=== PATIENT | male | born 1970 | race Caucasian/White ===

== ENCOUNTER 2017-12-30 07:23 | Day surgery (SDC) | payer OTHER ==
[2017-12-30] MEDS ORDERED: MIDAZOLAM 2 MG/2 ML VIAL IVP PRN (07:30)
[2017-12-30] MEDS ORDERED: fentaNYL 100 MCG/2 ML INJ IVP PRN (07:30)
[2017-12-30] MEDS ORDERED: FLUMAZENIL 0.5 MG/5 ML MDV IVP PRN (07:30)
[2017-12-30] MEDS ORDERED: MEPERIDINE 25 MG/ML SYR IVP PRN (07:30)
[2017-12-30] MEDS ORDERED: HEPARIN 10,000 UNIT/10 ML MDV (1,000 UNIT/ML) IVP PRN (07:30)
[2017-12-30] MEDS ORDERED: ceFAZolin 2 GM/DEXTROSE 100 ML IV ONE (07:30)
[2017-12-30] MEDS ORDERED: PROTAMINE SULFATE 50 MG/5 ML VIAL IVP PRN (07:30)
[2017-12-30] MEDS ORDERED: NS 1,000 ML IV ONE (07:30)
[2017-12-30] MEDS ORDERED: ALTEPLASE 2 MG VIAL IVP PRN (07:30)
[2017-12-30] MEDS ORDERED: GLUCAGON HCL 1 MG VIAL IVP PRN (07:30)
[2017-12-30] MEDS ORDERED: NALOXONE HCL 0.4 MG/ML INJ IVP PRN (07:30)
[2017-12-30] MEDS ORDERED: ONDANSETRON 4 MG/2 ML VIAL IVP ONE (07:30)
[2017-12-30] MEDS ORDERED: SODIUM TETRADECYL SULFATE 3% 2 ML VIAL IV ONE ×2 (08:00→10:35)
[2017-12-30] MEDS ORDERED: LIDO/EPI 1% **for epidural** 30 ML SDV ONE (08:00)
--- NOTE | 2017-12-30 09:18 | PDPROPOC ---
Sedation Plan of Care Sedation Plan of Care: vital signs stable, mental status noted, patient educated of risks, benefits, alternatives, patient can tolerate sedation ASA Classification: ASA 1 Planned drugs: fentanyl, midazolam Mallampati Score: Class 1 Mallampati Reference Image: Patient passed 3-3-2 rule?: No
--- NOTE | 2017-12-30 09:20 | PDGENHP ---
History & Physical Chief Complaint: BILATERAL VARICOSITIES History of Present Illness: PAIN AND SWELLING Pertinent Past, Social, Family History: N/A Relevant Physical Exam: ROPEY VARICOSE VEINS LLE. SWELLING BILATERAL ANKLE. Cardiorespiratory Assessment: RRR, CTA
[2017-12-30] MEDS ORDERED: fentaNYL 100 MCG/2 ML INJ ONE (10:18)
[2017-12-30] MEDS ORDERED: MIDAZOLAM 2 MG/2 ML VIAL ONE (10:18)
[2017-12-30] MEDS ORDERED: IBUPROFEN 200 MG TAB PO ONE (11:29)
[2017-12-30] MEDS ORDERED: ONDANSETRON DISINTEGRATING 4 MG TAB PO PRN (11:29)
[2017-12-30] MEDS ORDERED: ONDANSETRON 4 MG/2 ML VIAL IVP PRN (11:29)
[2017-12-30] MEDS ORDERED: HYDROCODONE/APAP 5/325 TAB PO PRN (11:29)
[2017-12-30] MEDS ORDERED: NS 1,000 ML IV SCH (11:30)
--- NOTE | 2017-12-30 11:30 | PDRADPN ---
Radiology Procedure Note Date of Procedure: 12/30/17 Radiologist: Maggie Espitia Anesthesia: IV Sedation Pre-op Diagnosis: BILATERAL VARICOSE VEINS Post-op Diagnosis: SAME Indication: PAIN AND SWELLING Procedure: BILATERAL LASER, SCLEROTHERAPY, LT PHELBECTOMY. Inf/Abcess present in the surg proc area at time of surgery?: No
[2017-12-30 16:04] VITALS: BP 106/67
== END 2017-12-30 16:06 | disposition home or self-care (01) ==
LOC: FIMAGING 07:23
PROVIDERS: ATTEND Radiology Diagnostic Radiology
DX: I83.813 Varicose veins of bilateral lower extremities with pain (principal); I83.893 Varicose veins of bilateral lower extremities with other complications; R22.43 Localized swelling, mass and lump, lower limb, bilateral
CPT/HCPCS: J0690; J2250; J2310; J3010

== ENCOUNTER → 2018-02-15 | Outpatient (CLI) | payer OTHER | LOC: FIMAGING 15:57 | PROVIDERS: ATTEND Radiology Diagnostic Radiology | DX: Z86.79 Personal history of other diseases of the circulatory system (principal) ==